=== PATIENT | female | born 1960 | race Caucasian/White ===

== ENCOUNTER → 2016-11-23 | Day surgery (SDC) | payer OTHER ==
[~2016-11-23] MED LIST: LACTATED RINGER'S 1000 ML INJ 1,000 ML ONE; LORT5TAB PO; PROPOFOL 200 MG/20 ML AMP IV ONE; Z.0.NO CURRENT MEDS
--- NOTE | 2016-11-23 11:20 | GIPROC ---
[facility] [address] [facility], [address] COLONOSCOPY PROCEDURE REPORT EXAM DATE: 11/23/2016 PATIENT NAME: Lulu David I MR #: [id number] BIRTHDATE: 1960 ENDOSCOPIST: Irlanda Medina MD ORDER #: [id number] MIDWIFE PRACTITIONER: STATUS: outpatient INDICATIONS: The patient is a 56 yr old female here for a colonoscopy due to family history of colon cancer, history of diverticulitis, polyps PROCEDURE PERFORMED: Colonoscopy with biopsy MEDICATIONS: None and Per Anesthesia. PREP QUALITY: good PREP TYPE:Miralax ESTIMATED BLOOD LOSS: None CONSENT: The patient understands the risks and benefits of the procedure and understands that these risks include, but are not limited to: sedation, allergic reaction, infection, perforation and/or bleeding. Alternative means of evaluation and treatment include, among others: physical exam, x-rays, and/or surgical intervention. The patient elects to proceed with this endoscopic procedure. medical equipment was checked for proper function. Hand hygiene and appropriate measures for infection prevention was taken. After the risks, benefits and alternatives of the procedure were thoroughly explained, Informed consent was verified, confirmed and timeout was successfully executed by the treatment team. A digital exam revealed external hemorrhoids The EC-3890Li ([id number]) endoscope was introduced through the anus and advanced to the cecum, which was identified by both the appendix and ileocecal valve. The instrument was then slowly withdrawn as the colon was fully examined. COLON FINDINGS: Diverticulosis sigmoid,descending , polyps in rectum-two diminutive-cold biopsy with complete removal. Retroflexed views revealed internal hemorrhoids and Retroflexed views revealed small internal hemorrhoids The scope was then completely withdrawn from the patient and the procedure terminated. PROCEDURE WITHDRAWAL TIME:8minutes ADVERSE EVENTS: There were no complications. IMPRESSIONS: 1. Diverticulosis sigmoid,descending , polyps in rectum-two diminutive-cold biopsy with complete removal 2. Retroflexed views revealed internal hemorrhoids 3. Retroflexed views revealed small internal hemorrhoids 4. Revealed external hemorrhoids RECOMMENDATIONS: 1. Await biopsy results. Biopsy results will not be ready for 7-10 days. If you don't hear from us in two weeks, call our office for results. 2. Benefiber 2 tsp daily 3. Probiotics from any [facility] or health food store 4. Yearly rectal exams 5. Continue surveillance RECALL: Colonoscopy, pending biopsy results Irlanda Medina MD eSigned: Irlanda Medina MD 11/23/2016 11:20 AM cc: Micaela Chacko [facility] Moore
--- NOTE | 2016-11-23 11:24 | GIPROC ---
[facility] [address] [facility], [address] EGD WITH DILATION PROCEDURE REPORT EXAM DATE: 11/23/2016 PATIENT NAME: Lulu David I MR#: [id number] BIRTHDATE: 1960 ATTENDING: Irlanda Medina MD ORDER #: [id number] STOCK DIGGER: STATUS: outpatient INDICATIONS: The patient is a 56 yr old female here for an EGD with dilation due to dysphagia, reflux PROCEDURE PERFORMED: EGD w/ biopsy EGD w/ dilation of esophagus via guidewire MEDICATIONS: None and Per Anesthesia. TOPICAL ANESTHETIC: none CONSENT: The patient understands the risks and benefits of the procedure and understands that these risks include, but are not limited to: sedation, allergic reaction, infection, perforation and/or bleeding. Alternative means of evaluation and treatment include, among others: physical exam, x-rays, and/or surgical intervention. The patient elects to proceed with this endoscopic procedure. medical equipment was checked for proper function. Hand hygiene and appropriate measures for infection prevention was taken. After the risks, benefits and alternatives of the procedure were thoroughly explained, Informed consent was verified, confirmed and timeout was successfully executed by the treatment team. The patient was anesthetized with topical anesthesia and the EC-3890Li ([id number]) endoscope was introduced through the mouth and advanced to the second portion of the duodenum. The instrument was slowly withdrawn as the mucosa was fully examined. Duodenitis second portion-biopsy gastritis antrum-biopsy esophagitis distal esophagus -biopsy esophageal spasm. Dilation was performed at gastroesophageal junction. DILATOR: SIZE(S): RESISTANCE: HEME: APPEARANCE: Dilator: Savary over guidewire Size(s): 17 COMMENT: Retroflexed views revealed a hiatal hernia ADVERSE EVENTS: There were no complications. IMPRESSIONS: 1. Duodenitis second portion-biopsy gastritis antrum-biopsy esophagitis distal esophagus -biopsy esophageal spasm 2. Retroflexed views revealed a hiatal hernia RECOMMENDATIONS: 1. Await biopsy results. Biopsy results will not be ready for 7-10 days. If you don't hear from us in two weeks, call our office for biopsy results. 2. Anti-reflux regimen 3. Continue PPI 4. Dilatations PRN REPEAT EXAM: EGD pending biopsy results Irlanda Medina MD eSigned: Irlanda Medina MD 11/23/2016 11:24 AM cc: Wallace Castorena PATIENT NAME: Lulu David I MR#: [id number]
== END | disposition home or self-care (01) ==
LOC: ESDC 09:18
PROVIDERS: ATTEND Internal Medicine Gastroenterology
DX: R13.10 Dysphagia, unspecified (principal); K57.90 Diverticulosis of intestine, part unspecified, without perforation or abscess without bleeding; K21.9 Gastro-esophageal reflux disease without esophagitis; K29.80 Duodenitis without bleeding; K44.9 Diaphragmatic hernia without obstruction or gangrene; K29.70 Gastritis, unspecified, without bleeding; K20.9 Esophagitis, unspecified; K22.4 Dyskinesia of esophagus; Z86.010 Personal history of colon polyps; Z80.0 Family history of malignant neoplasm of digestive organs; K62.1 Rectal polyp; K64.8 Other hemorrhoids; K64.4 Residual hemorrhoidal skin tags
CPT/HCPCS: 00740; 00810; 43239; 43248; 45380; 88305; J3010; J7120